=== PATIENT | female | born 1950 | race Caucasian/White ===

== ENCOUNTER → 2017-07-07 19:00 | Outpatient (CLI) | payer MEDICARE | END | disposition home or self-care (01) | LOC: D.MAMMO 11:30 | DX: Z12.31 Encounter for screening mammogram for malignant neoplasm of breast (principal) ==

== ENCOUNTER 2019-05-24 01:36 | Emergency (ER) | payer MEDICARE, MEDICAID ==
[~2019-05-24] VITALS: Ht 157.5 cm; Wt 106.4 kg
[2019-05-24 01:53] VITALS: Ht 157.5 cm; Wt 106.4 kg
[2019-05-24] MEDS ORDERED: CLARITIN 10 MG10 MG (01:55)
[2019-05-24] MEDS ORDERED: GLUCOPHAGE500 MG (01:55)
[2019-05-24] MEDS ORDERED: LIPITOR40 MG (01:55)
[2019-05-24] MEDS ORDERED: LISINOPRIL10 MG (01:55)
[2019-05-24] MEDS ORDERED: VITAMINS (01:55)
[2019-05-24] MEDS ORDERED: EYE DROPS (01:56)
[2019-05-24 02:37] LABS: BASOPHILS 0.2 % (0-2); EOSINOPHILS 2.6 % (0-7); HEMATOCRIT 41.6 % (36.0-48.0); HEMOGLOBIN 13.6 g/dL (12-16); IMMATURE GRANULOCYTES 0.3 % (0-5); LYMPHOCYTES 24.9 % (15-50); MCH 31.7 pg (26.0-34.0); MCHC 32.7 g/dL (31.0-37.0); MEAN PLATELET VOLUME 10.1 fL (7.4-10.4); MONOCYTES 5.7 % (2-11); NEUTROPHILS 66.3 % (40-80); PLATELET COUNT 272 10x3/uL (130-400); RBC 4.29 10x6/uL (4.00-5.40); WBC 12.1 10x3/uL (4.8-10.8)
[2019-05-24 02:39] LABS: CALC OSMOLALITY 285 mosm/kg (275-300); CALCIUM 8.7 mg/dL (8.5-10.1); CHLORIDE - SERUM 105 mmol/L (98-107); CREATININE - SERUM 0.8 mg/dL (0.6-1.3); GLUCOSE 161 mg/dL (74-106); POTASSIUM - SERUM 3.7 mmol/L (3.5-5.1); SODIUM 140 mmol/L (136-145); UREA NITROGEN 25 mg/dL (7-18); eGFR NON AFRICAN AMERICAN 75 mL/min (90-120)
[2019-05-24 02:45] LABS: ALBUMIN 3.4 g/dL (3.4-5.0); ALKALINE PHOSPHATASE 92 U/L (46-116); ALT (SGPT) 35 U/L (10-68); BILIRUBIN - TOTAL 0.26 mg/dL (0.2-1.3); PROTEIN - SERUM 7.3 g/dL (6.4-8.2)
[2019-05-24 02:52] LABS: APPEARANCE CLEAR (CLEAR); BILIRUBIN NEGATIVE (NEGATIVE); COLOR YELLOW (YELLOW); GLUCOSE NEGATIVE (NEGATIVE); KETONE NEGATIVE (NEGATIVE); NITRITE NEGATIVE (NEGATIVE); PROTEIN NEGATIVE (NEGATIVE); UROBILINOGEN NORMAL (NORMAL)
[2019-05-24 02:55] LABS: BACTERIA NONE SEEN /hpf (NEGATIVE); CALCIUM OXALATE CRYSTALS 0-5 /hpf (NONE SEEN); EPITHELIAL CELLS 0-5 /hpf (0-5); RED CELLS - URINE 0-5 /hpf (0-5)
[2019-05-24] MEDS ORDERED: HYDROCODON-ACE1 EAC7 PO (03:23)
[2019-05-24 03:49] VITALS: BP 132/74
== END 2019-05-24 03:49 | disposition home or self-care (01) ==
LOC: D.ER 01:36
PROVIDERS: Emergency Medicine
DX: R10.11 Right upper quadrant pain (principal); K80.20 Calculus of gallbladder without cholecystitis without obstruction; R11.10 Vomiting, unspecified; I10 Essential (primary) hypertension; E11.9 Type 2 diabetes mellitus without complications; Z79.84 Long term (current) use of oral hypoglycemic drugs

== ENCOUNTER → 2019-06-03 15:23 | Outpatient (CLI) | payer MEDICARE, MEDICAID ==
[2019-05-24 01:53] VITALS: BMI 42.9
[~2019-06-03 15:23] MED LIST: CLARITIN 10 MG10 MG; EYE DROPS; FLUTICASONE PRO16 GM NASAL; GLUCOPHAGE500 MG; HYDROCODON-ACE1 EAC7 PO; LIPITOR40 MG; LISINOPRIL10 MG; VITAMINS
[2019-06-03 15:44] LABS: BASOPHILS 0.5 % (0-2); EOSINOPHILS 6.1 % (0-7); HEMATOCRIT 39.7 % (36.0-48.0); HEMOGLOBIN 13.3 g/dL (12-16); IMMATURE GRANULOCYTES 0.1 % (0-5); LYMPHOCYTES 40.4 % (15-50); MCH 31.5 pg (26.0-34.0); MCHC 33.5 g/dL (31.0-37.0); MCV 94.1 fL (80.0-100.0); MEAN PLATELET VOLUME 9.7 fL (7.4-10.4); MONOCYTES 9.1 % (2-11); NEUTROPHILS 43.8 % (40-80); RBC 4.22 10x6/uL (4.00-5.40); RDW 12.8 % (11.5-14.5); WBC 9.1 10x3/uL (4.8-10.8)
[2019-06-03 15:52] LABS: PLATELET COUNT 327 10x3/uL (130-400)
[2019-06-06 14:00] VITALS: BMI 42.8
== END | disposition home or self-care (01) ==
LOC: D.LAB 15:23
PROVIDERS: ATTEND Internal Medicine Gastroenterology
DX: R19.5 Other fecal abnormalities (principal)

== ENCOUNTER 2019-12-03 21:15 | Inpatient (IN) | payer MEDICARE, MEDICAID ==
[~2019-12-03] VITALS: Ht 157.5 cm; Wt 97.7 kg
[2019-12-03] MEDS ORDERED: PRESSURE VISION (21:34)
[2019-12-03 22:17] VITALS: BP 128/97
[2019-12-03 23:11] VITALS: BP 125/71
[2019-12-03 23:38] LABS: HEMATOCRIT 43.2 % (36.0-48.0); HEMOGLOBIN 14.5 g/dL (12-16); LYMPHOCYTES 16.1 % (15-50); MCH 31.7 pg (26.0-34.0); MCHC 33.6 g/dL (31.0-37.0); MCV 94.3 fL (80.0-100.0); MEAN PLATELET VOLUME 9.8 fL (7.4-10.4); NEUTROPHILS 76.4 % (40-80); PLATELET COUNT 288 10x3/uL (130-400); RBC 4.58 10x6/uL (4.00-5.40); RDW 12.8 % (11.5-14.5); WBC 17.8 10x3/uL (4.8-10.8)
[2019-12-03 23:47] LABS: APTT 22.9 SECONDS (22.8-39.4); INR 0.94 (0.85-1.17); PROTIME 12.5 SECONDS (11.6-15.0)
[2019-12-03 23:53] LABS: CALC OSMOLALITY 279 mosm/kg (275-300); CALCIUM 9.3 mg/dL (8.5-10.1); CARBON DIOXIDE 26.3 mmol/L (21.0-32.0); CHLORIDE - SERUM 101 mmol/L (98-107); CREATININE - SERUM 1.1 mg/dL (0.6-1.3); GLUCOSE 120 mg/dL (74-106); POTASSIUM - SERUM 3.8 mmol/L (3.5-5.1); SODIUM 137 mmol/L (136-145); UREA NITROGEN 27 mg/dL (7-18); eGFR NON AFRICAN AMERICAN 52 mL/min (90-120)
[2019-12-04] VITALS (9 sets, daily range): BP systolic 118–157; BP diastolic 54–78; Ht 157.5 cm; Wt 97.7 kg
[2019-12-04 00:10] LABS: ALBUMIN 3.5 g/dL (3.4-5.0); ALKALINE PHOSPHATASE 78 U/L (30-120); ALT (SGPT) 31 U/L (10-68); BILIRUBIN - TOTAL 0.42 mg/dL (0.2-1.3); CKMB 0.5 U/L (0.0-3.6); CREATINE KINASE 88 UL (21-215); MAGNESIUM - SERUM 1.6 mg/dL (1.8-2.4); PRO BNP 108 pg/mL (0-125); PROTEIN - SERUM 6.9 g/dL (6.4-8.2); THYROID STIMULATING HORMONE 2.13 uIU/mL (0.36-3.74); TROPONIN-I < 0.017 ng/mL (0.000-0.060)
[2019-12-04 00:48] LABS: UDS - AMPHET NEGATIVE QUAL (NEGATIVE); UDS - BARB NEGATIVE QUAL (NEGATIVE); UDS - BENZO NEGATIVE QUAL (NEGATIVE); UDS - COCAINE NEGATIVE QUAL (NEGATIVE); UDS - OPIATE NEGATIVE QUAL (NEGATIVE); UDS - PCP NEGATIVE QUAL (NEGATIVE); UDS - THC NEGATIVE QUAL (NEGATIVE)
[2019-12-04 00:54] LABS: BILIRUBIN NEGATIVE (NEGATIVE); GLUCOSE NEGATIVE (NEGATIVE); KETONE NEGATIVE (NEGATIVE); NITRITE NEGATIVE (NEGATIVE); UROBILINOGEN NORMAL (NORMAL)
[2019-12-04 00:57] LABS: BACTERIA MODERATE /hpf (NEGATIVE); EPITHELIAL CELLS 0-5 /hpf (0-5); HYALINE CAST 0-5 /lpf (NONE SEEN); RED CELLS - URINE 0-5 /hpf (0-5)
--- NOTE | 2019-12-04 03:15 | NUR ---
PT ARRIVED TO THE FLOOR. ALERT AND ORIENTED. NO SIGNS OF DISTRESS. BREATHING EVEN AND UNLABORED. IV SITE RT THUMB DRESSING CLEAN DRY AND INTACT. NO SIGNS OF INFECTION OR INFULTRATION. RT SIDE OF FORHEAD RED BRYSON. PT STATES FROM THE FALL AT HOME. LT INNER ELBOW RED RASH PRESENT. PT STATES SHE DOESNT KNOW WHERE THAT CAME FROM. BOWEL SOUNDS ACTIVE. LUNG SOUNDS CLEAR. NO LOWER LEG SWELLING PRESENT. WILL CONTINUE PLAN OF CARE. CALL LIGHT IN REACH. BED LOWERED AND LOCKED. BED RAILS UPX3.
[2019-12-04 05:15] LABS: BASOPHILS 0.2 % (0-2); EOSINOPHILS 0.4 % (0-7); HEMATOCRIT 35.9 % (36.0-48.0); IMMATURE GRANULOCYTES 0.3 % (0-5); LYMPHOCYTES 36.3 % (15-50); MCH 31.7 pg (26.0-34.0); MCHC 33.4 g/dL (31.0-37.0); MEAN PLATELET VOLUME 10.3 fL (7.4-10.4); MONOCYTES 8.5 % (2-11); NEUTROPHILS 54.3 % (40-80); PLATELET COUNT 242 10x3/uL (130-400); RBC 3.78 10x6/uL (4.00-5.40); WBC 9.4 10x3/uL (4.8-10.8)
[2019-12-04 05:16] LABS: APTT 23.9 SECONDS (22.8-39.4); INR 0.98 (0.85-1.17); PROTIME 12.9 SECONDS (11.6-15.0)
[2019-12-04 05:32] LABS: ALKALINE PHOSPHATASE 65 U/L (30-120); ALT (SGPT) 28 U/L (10-68); BILIRUBIN - TOTAL 0.31 mg/dL (0.2-1.3); CALC OSMOLALITY 285 mosm/kg (275-300); CALCIUM 8.1 mg/dL (8.5-10.1); CARBON DIOXIDE 24.6 mmol/L (21.0-32.0); CHLORIDE - SERUM 106 mmol/L (98-107); CKMB 0.6 U/L (0.0-3.6); CREATINE KINASE 87 UL (21-215); GLUCOSE 101 mg/dL (74-106); MAGNESIUM - SERUM 1.5 mg/dL (1.8-2.4); PHOSPHOROUS 3.2 mg/dL (2.5-4.9); POTASSIUM - SERUM 3.3 mmol/L (3.5-5.1); PROTEIN - SERUM 5.7 g/dL (6.4-8.2); SODIUM 141 mmol/L (136-145); UREA NITROGEN 27 mg/dL (7-18); eGFR NON AFRICAN AMERICAN 58 mL/min (90-120)
[2019-12-04 05:50] LABS: TROPONIN-I < 0.017 ng/mL (0.000-0.060)
[2019-12-05] VITALS: BP 154/87
[2019-12-05 04:00] VITALS: BP 139/75
--- NOTE | 2019-12-05 04:45 | NUR ---
I have reviewed this patient and I concur with the Shift Assessment completed by the Licensed Practical Nurse today this shift.
[2019-12-05 06:40] LABS: BASOPHILS 0.1 % (0-2); EOSINOPHILS 1.2 % (0-7); HEMATOCRIT 37.6 % (36.0-48.0); HEMOGLOBIN 12.5 g/dL (12-16); IMMATURE GRANULOCYTES 0.1 % (0-5); LYMPHOCYTES 33.8 % (15-50); MCH 31.4 pg (26.0-34.0); MCHC 33.2 g/dL (31.0-37.0); MCV 94.5 fL (80.0-100.0); MEAN PLATELET VOLUME 9.9 fL (7.4-10.4); MONOCYTES 8.4 % (2-11); NEUTROPHILS 56.4 % (40-80); PLATELET COUNT 279 10x3/uL (130-400); RBC 3.98 10x6/uL (4.00-5.40); WBC 8.2 10x3/uL (4.8-10.8)
[2019-12-05 07:00] LABS: CALCIUM 8.7 mg/dL (8.5-10.1); CARBON DIOXIDE 24.2 mmol/L (21.0-32.0); CHLORIDE - SERUM 107 mmol/L (98-107); CREATININE - SERUM 0.8 mg/dL (0.6-1.3); GLUCOSE 127 mg/dL (74-106); MAGNESIUM - SERUM 1.8 mg/dL (1.8-2.4); PHOSPHOROUS 2.4 mg/dL (2.5-4.9); SODIUM 140 mmol/L (136-145); eGFR NON AFRICAN AMERICAN 75 mL/min (90-120)
[2019-12-05 07:01] LABS: CALC OSMOLALITY 282 mosm/kg (275-300); POTASSIUM - SERUM 3.8 mmol/L (3.5-5.1); UREA NITROGEN 19 mg/dL (7-18)
--- NOTE | 2019-12-05 08:00 | NUR ---
NEW IV STARTED TO THE LFA. REMOVED THE IV TO THE LEFT THUMB. SHE IS ALERT, TALKING. DENIES ANY NEEDS. THE CALL LIGHT IS WITHIN REACH.
[2019-12-05 10:59] VITALS: BP 130/76
[2019-12-05 13:16] VITALS: BP 143/66
[2019-12-05 18:02] VITALS: BP 133/60
[2019-12-05 20:00] VITALS: BP 141/66
[2019-12-06] VITALS: BP 138/60
--- NOTE | 2019-12-06 03:03 | NUR ---
ASSESSED AT THE BEGINNING OF THE SHIFT. PT IS ALERT AND ORIENTED, ABLE TO VERBALZIE NEEDS. SHE HAS REQUESTED FREQUENT TRIPS TO THE BATHROOM AND DOES WELL WITH MINIMAL ASSIST. SHE DOSES HAVE SMALL ABRASIONS TO HER KNEES AND ELBOWS PLUS AN ANT BITE ON HER LEFT ELBOW. SHE IS ON ROOM AIR AND HAS TELEMETRY IN PLACE WITH IT SHOWING SINUS RHYTMN. AT THIS TIME SHE APPEARS TO BE ASLEEP.
[2019-12-06 05:29] LABS: BASOPHILS 0.1 % (0-2); EOSINOPHILS 2.5 % (0-7); HEMATOCRIT 36.4 % (36.0-48.0); HEMOGLOBIN 11.8 g/dL (12-16); IMMATURE GRANULOCYTES 0.1 % (0-5); LYMPHOCYTES 39.3 % (15-50); MCH 30.8 pg (26.0-34.0); MCHC 32.4 g/dL (31.0-37.0); MEAN PLATELET VOLUME 9.9 fL (7.4-10.4); MONOCYTES 7.5 % (2-11); NEUTROPHILS 50.5 % (40-80); PLATELET COUNT 244 10x3/uL (130-400); RBC 3.83 10x6/uL (4.00-5.40); RDW 13.1 % (11.5-14.5); WBC 8.4 10x3/uL (4.8-10.8)
[2019-12-06 05:47] LABS: CALC OSMOLALITY 284 mosm/kg (275-300); CALCIUM 8.6 mg/dL (8.5-10.1); CARBON DIOXIDE 26.5 mmol/L (21.0-32.0); CHLORIDE - SERUM 107 mmol/L (98-107); CREATININE - SERUM 0.8 mg/dL (0.6-1.3); GLUCOSE 123 mg/dL (74-106); MAGNESIUM - SERUM 1.8 mg/dL (1.8-2.4); POTASSIUM - SERUM 3.9 mmol/L (3.5-5.1); SODIUM 141 mmol/L (136-145); UREA NITROGEN 22 mg/dL (7-18); eGFR NON AFRICAN AMERICAN 75 mL/min (90-120)
[2019-12-06 06:01] LABS: PHOSPHOROUS 3.2 mg/dL (2.5-4.9)
[2019-12-06] MEDS ORDERED: LEVOFLOXACIN500 MG PO (09:07)
[2019-12-06 09:46] VITALS: BP 151/76
--- NOTE | 2019-12-06 10:45 | NUR ---
PT SITTING UP IN BED, A&O X4. DENIES PAIN. PIV IN RIGHT FOREARM, PATENT, NO REDNESS OR SWELLING. SWEELING AND REDNESS ON BACK OF LEFT UPPER ARM, STATES IT IS FROM A BIG BITE. PT ABLE TO AMBULATE WITHOUT ASSIST. PT ON TELEMETRY 88 SR. PT HAS SCABS ON BILAT KNEES AND ELBOWS. EDUCATED ON CL AND NEEDS. BED LOW, RAILS X2. CL IN REACH. WILL CONTINUE TO MONITOR.
--- NOTE | 2019-12-06 11:57 | MORECARE ---
CASE MANAGEMENT DISCHARGE SUMMARY PATIENT: GARETH BROWN UNIT: [id number] ADM DATE: 12/04/19 AGE: 69 : 50 SEX: F ROOM/BED: D.2205 AUTHOR: LUCAS DON PHYSICIAN: REFERRING PHYSICIAN: TADEO CHARLES MD DATE OF SERVICE: 12/06/19 Discharge Plan Patient Name: GARETH BROWN [facility] [facility] 1950 Planned Disposition: Home Anticipated Discharge Date: Discharge Date: Expected LOS: Initial Reviewer: [email or web address] Initial Review Date: 12/04/2019 Generated: 12/06/19 12:57 pm DCPIA - Discharge Planning Initial Assessment Updated by [email or web address]: Ambika Castillo on 12/06/19 11:52 am * Is the patient Alert and Oriented? Yes * How many steps to enter\exit or inside your home? * PCP [facility] * Pharmacy [facility] * Preadmission Environment Home Alone * ADLs Independent * Equipment Bedside Commode Rolling Walker * List name and contact numbers for known caregivers / representatives who currently or will assist patient after discharge: LAM [phone] * Verbal permission to speak to the caregivers and representatives has been obtained from the patient. N/A * Community resources currently utilized Other * Please name any agencies selected above. [facility] * Additional services required to return to the preadmission environment? No * Can the patient safely return to the preadmission environment? Yes * Has this patient been hospitalized within the prior 30 days at any hospital? No Patient Name: GARETH BROWN Page [id number] at 1157 All edits/amendments must be made on the electronic document DICTATION DATE: 12/06/19 1157 OPERATION MANAGER: LINO 12/06/19 1157 RPT#: [id number] DC DATE: STATUS: ADM IN [facility] [address] [place] [address] END OF REPORT
--- NOTE | 2019-12-06 12:07 | MORECARE ---
CASE MANAGEMENT DISCHARGE SUMMARY PATIENT: GARETH BROWN UNIT: [id number] ADM DATE: 12/04/19 AGE: 69 : 50 SEX: F ROOM/BED: D.2205 AUTHOR: LUCAS DON PHYSICIAN: REFERRING PHYSICIAN: TADEO CHARLES MD DATE OF SERVICE: 12/06/19 Discharge Plan Patient Name: GARETH BROWN Facility: [facility]:[place] : 1950 Planned Disposition: Home Anticipated Discharge Date: Discharge Date: Expected LOS: Initial Reviewer: [email or web address] Initial Review Date: 12/04/2019 Generated: 12/06/19 1:07 pm Comments DCP- Discharge Planning Updated by [email or web address]: Ambika Castillo on 12/06/19 10:[address] Patient Name: GARETH BROWN Admission Status: ER Accout number: [id number] Admission Date: 12-04-2019 : 1950 Admission Diagnosis:SYNCOPE AND COLLAPSE Attending: TADEO CHARLES Current LOS: 2 Anticipated DC Date: Planned Disposition: Home Primary Insurance: [employer] ADV Discharge Planning Comments: CM met with patient to complete initial dc planning assessment. CM educated patient on the CM role and verbal consent given by patient to complete assessment. Patient lives at home by herself, but her cousin lives two houses down from her & her niece lives two house down from that. At discharge patient plans to return home and feels this is a safe discharge. CM discussed availability of home health, rehab services, and medical equipment. Patient stated that [facility] send help and nurses out to her. She dod not think she needed anything else. Her cousin, Jeri will be her charter driver home. She has a BSC and a walker plus a rail. Patient denied known discharge needs at this time. CM will continue to follow and will assist as needed with dc plans/needs. Fireworks Assembler: Ambika Castillo DCPIA - Discharge Planning Initial Assessment Updated by [email or web address]: Ambika Castillo on 12/06/19 11:52 am * Is the patient Alert and Oriented? Yes * How many steps to enter\exit or inside your home? * PCP [place] * Pharmacy [facility] * Preadmission Environment Home Alone * ADLs Independent * Equipment Bedside Commode Rolling Walker * List name and contact numbers for known caregivers / representatives who currently or will assist patient after discharge: JERI [phone] * Verbal permission to speak to the caregivers and representatives has been obtained from the patient. N/A * Community resources currently utilized Other * Please name any agencies selected above. [facility] * Additional services required to return to the preadmission environment? No * Can the patient safely return to the preadmission environment? Yes * Has this patient been hospitalized within the prior 30 days at any hospital? No Last DP export: 12/06/19 10:57 a Patient Name: GARETH BROWN Page [id number] at 1207 All edits/amendments must be made on the electronic document DICTATION DATE: 12/06/19 1207 STAFF ELECTRONIC WARFARE OFFICER: LINO 12/06/19 1207 RPT#: [id number] DC DATE: STATUS: ADM IN [facility] [address] [place] [address] END OF REPORT
--- NOTE | 2019-12-06 12:44 | NUR ---
EDUCATED PT ON DISCHARGE INSTRUSTIONS. PT SIGNED PAPERWORK. PT ESCORTED TO FRONT ENTRANCE VIA WHEELCHAIR.
--- NOTE | 2019-12-06 17:01 | MORECARE ---
CASE MANAGEMENT DISCHARGE SUMMARY PATIENT: GARETH BROWN UNIT: [id number] ADM DATE: 12/04/19 AGE: 69 : 50 SEX: F ROOM/BED: D.2205 AUTHOR: LUCAS DON PHYSICIAN: REFERRING PHYSICIAN: TADEO CHARLES MD DATE OF SERVICE: 12/06/19 Discharge Plan Patient Name: GARETH BROWN Facility: [facility]:[place] : 1950 Planned Disposition: Home Anticipated Discharge Date: Discharge Date: 12/06/2019 Expected LOS: Initial Reviewer: [email or web address] Initial Review Date: 12/04/2019 Generated: 12/06/19 6:00 pm Comments DCP- Discharge Planning Updated by [email or web address]: Ambika Castillo on 12/06/19 10:[address] Patient Name: GARETH BROWN Admission Status: ER Accout number: [id number] Admission Date: 12-04-2019 : 1950 Admission Diagnosis:SYNCOPE AND COLLAPSE Attending: TADEO CHARLES Current LOS: 2 Anticipated DC Date: Planned Disposition: Home Primary Insurance: [employer] ADV Discharge Planning Comments: CM met with patient to complete initial dc planning assessment. CM educated patient on the CM role and verbal consent given by patient to complete assessment. Patient lives at home by herself, but her cousin lives two houses down from her & her niece lives two house down from that. At discharge patient plans to return home and feels this is a safe discharge. CM discussed availability of home health, rehab services, and medical equipment. Patient stated that [facility] send help and nurses out to her. She dod not think she needed anything else. Her cousin, Jeri will be her motor driver home. She has a BSC and a walker plus a rail. Patient denied known discharge needs at this time. CM will continue to follow and will assist as needed with dc plans/needs. Corporate Logistics Manager: Ambika Castillo DCPIA - Discharge Planning Initial Assessment Updated by [email or web address]: Ambika Castillo on 12/06/19 11:52 am * Is the patient Alert and Oriented? Yes * How many steps to enter\exit or inside your home? * PCP [facility] * Pharmacy [facility] [address] * Preadmission Environment Home Alone * ADLs Independent * Equipment Bedside Commode Rolling Walker * List name and contact numbers for known caregivers / representatives who currently or will assist patient after discharge: JERI [phone] * Verbal permission to speak to the caregivers and representatives has been obtained from the patient. N/A * Community resources currently utilized Other * Please name any agencies selected above. [facility] [facility] * Additional services required to return to the preadmission environment? No * Can the patient safely return to the preadmission environment? Yes * Has this patient been hospitalized within the prior 30 days at any hospital? No Last DP export: 12/06/19 11:07 a Patient Name: GARETH BROWN Page [id number] at 1701 All edits/amendments must be made on the electronic document DICTATION DATE: 12/06/191699 DOCUMENT REVIEW SPECIALIST: LINO 12/06/191699 RPT#: [id number] DC DATE:12/06/19 STATUS: DIS IN [facility] [address] [place] [address] END OF REPORT
== END 2019-12-06 13:25 | disposition home or self-care (01) | DRG 312 ==
LOC: D.ER 21:15 → D.MS 12-04 01:16 → OBSVTIME 12-04 01:16 → D.MS 12-04 01:16
PROVIDERS: Family Medicine; ADMIT Family Medicine; ATTEND Family Medicine
DX: R55 Syncope and collapse (principal); N39.0 Urinary tract infection, site not specified; I10 Essential (primary) hypertension; E11.9 Type 2 diabetes mellitus without complications; E78.5 Hyperlipidemia, unspecified; W19.XXXA Unspecified fall, initial encounter; G80.9 Cerebral palsy, unspecified; F32.9 Major depressive disorder, single episode, unspecified; G47.33 Obstructive sleep apnea (adult) (pediatric); E83.42 Hypomagnesemia